=== PATIENT | female | born 1990 | race American Indian/Alaskan Native ===

== ENCOUNTER 2018-02-20 14:49 | Emergency (ER) | payer OTHER ==
[2018-02-20 14:55] VITALS: BP 131/80
== END 2018-02-20 16:53 | disposition left against medical advice (07) ==
LOC: ED 14:49
DX: M54.9 Dorsalgia, unspecified (principal); Z53.21 Procedure and treatment not carried out due to patient leaving prior to being seen by health care provider

== ENCOUNTER 2021-06-28 22:07 | Emergency (ER) | payer MEDICAID ==
[2021-06-28 22:16] VITALS: BP 144/86
--- NOTE | 2021-06-28 22:50 | Emergency Department Report ---
ED Abdominal Pain HPI - General Chief Complaint: Abdominal Pain Stated Complaint: RIGHT SIDE PAIN AND FEVER Time Seen by Provider: 06/28/21 22:30 Source: patient Mode of arrival: Ambulatory Limitations: No Limitations - History of Present Illness Initial Comments: 30-year-old female presents to ED with right flank pain. Patient states 2 weeks ago she began having some back pain, urinary frequency. Patient believes she was given a prescription for Bactrim, which she finished. Patient reports fever at home. States she is still having right-sided back pain and urinary frequency. MD Complaint: flank pain -: week(s) (2) Location: R flank Radiation: none Migration to: no migration Severity: moderate Quality: aching Consistency: intermittent Improves With: nothing Worsens With: nothing Associated Symptoms: fever. denies: nausea, vomiting, diarrhea, hematuria - Related Data Previous Rx's Medication Instructions Recorded Last Taken Type Ciprofloxacin HCl 500 mg PO BID 5 Days #10 tablet 06/29/21 Unknown Rx Naproxen [Naprosyn] 500 mg PO BID #20 tablet 06/29/21 Unknown Rx traMADoL [Ultram] 50 mg PO Q6HR PRN #7 tablet 06/29/21 Unknown Rx Allergies Allergy/AdvReac Type Severity Reaction Status Date / Time No Known Allergies Allergy Unverified 02/20/18 14:53 ED Review of Systems ROS: Stated complaint: LEFT SIDE PAIN AND FEVER Other details as noted in HPI Comment: All other systems reviewed and negative Constitutional: fever Gastrointestinal: abdominal pain. denies: nausea, vomiting Genitourinary: frequency. denies: hematuria, discharge Musculoskeletal: back pain ED Past Medical Hx - Past Medical History Previous Medical History?: No - Surgical History Past Surgical History?: Yes Additional Surgical History: C/S - Social History Smoking Status: Never Smoker Substance Use Type: None - Medications Home Medications: Home Medications Medication Instructions Recorded Confirmed Last Taken Type Ciprofloxacin HCl 500 mg PO BID 5 Days #10 tablet 06/29/21 Unknown Rx Naproxen [Naprosyn] 500 mg PO BID #20 tablet 06/29/21 Unknown Rx traMADoL [Ultram] 50 mg PO Q6HR PRN #7 tablet 06/29/21 Unknown Rx ED Physical Exam - General Limitations: No Limitations General appearance: alert, in no apparent distress - Head Head exam: Present: atraumatic, normocephalic - Eye Eye exam: Present: normal appearance, EOMI - ENT ENT exam: Present: mucous membranes moist - Neck Neck exam: Present: normal inspection - Respiratory Respiratory exam: Present: normal lung sounds bilaterally. Absent: respiratory distress - Cardiovascular Cardiovascular Exam: Present: regular rate, normal rhythm - GI/Abdominal GI/Abdominal exam: Present: soft, tenderness (RLQ, RUQ). Absent: distended - Extremities Exam Extremities exam: Present: normal inspection - Back Exam Back exam: Present: CVA tenderness (R) - Neurological Exam Neurological exam: Present: alert, oriented X3 - Psychiatric Psychiatric exam: Present: normal affect, normal mood - Skin Skin exam: Present: warm, dry, intact, normal color ED Course Vital Signs 06/28/21 06/29/21 22:11 01:30 Temperature 98.6 F Pulse Rate 82 77 Respiratory 16 16 Rate Blood Pressure 144/86 O2 Sat by Pulse 100 100 Oximetry ED Medical Decision Making - Lab Data Result diagrams: 06/28/21 22:55 06/28/21 22:55 - Radiology Data Radiology results: report reviewed, image reviewed - Medical Decision Making CT shows possible hydrosalpinx in the left adnexa. Patient has no left-sided abdominal tenderness. She denies any vaginal discharge. There are now stones or hydronephrosis. Labs show pyuria, with many epithelials present. Since patient remains symptomatic and had CVA tenderness present on exam we will treat as pyelonephritis. Will discharge with antibiotics. Outpatient follow-up advised, return precautions given. - Differential Diagnosis Pyelonephritis, kidney stone, appendicitis Critical care attestation.: If time is entered above; I have spent that time in minutes in the direct care of this critically ill patient, excluding procedure time. ED Disposition Clinical Impression: Pyelonephritis Disposition: HOME / SELF CARE / HOMELESS Is pt being admited?: No Condition: Stable Instructions: Pyelonephritis, Adult, [id number], Abdominal Pain (ED) Prescriptions: Ciprofloxacin HCl 500 mg PO BID 5 Days #10 tablet Naproxen [Naprosyn] 500 mg PO BID #20 tablet traMADoL [Ultram] 50 mg PO Q6HR PRN #7 tablet PRN Reason: Pain Referrals: [facility] [place] MD BRENDA [Primary Care Provider] - 3-5 Days BLAIR SMALL MD [Staff Physician] - 3-5 Days Time of Disposition: :01
[2021-06-28 22:56] LABS: Bilirubin,Urine NEG (Negative); Blood,Urine NEG (Negative); Color,Urine Yellow (Yellow); Hyaline Casts,Urine 3 /LPF; Mucus,Urine 3+ /HPF
[2021-06-28 23:39] LABS: Basophils # (Auto) 0.1 K/mm3 (0.0-0.1); Basophils % (Auto) 0.9 % (0.0-1.8); Eosinophils % (Auto) 0.2 % (0.0-4.3); Lymphocytes # (Auto) 1.4 K/mm3 (1.2-5.4); Lymphocytes % (Auto) 20.4 % (13.4-35.0); Mean Corpuscular HGB Conc 30 % (30-34); Mean Corpuscular Volume 72 fl (79-97); Monocytes # (Auto) 0.9 K/mm3 (0.0-0.8); Monocytes % (Auto) 13.2 % (0.0-7.3); Platelet Count 427 K/mm3 (140-440); Red Blood Count 4.38 M/mm3 (3.65-5.03)
[2021-06-28 23:41] LABS: Hematocrit 31.5 % (30.3-42.9); Hemoglobin 9.5 gm/dl (10.1-14.3); Red Cell Distribution Width 20.4 % (13.2-15.2)
[2021-06-28 23:48] LABS: Alanine Aminotransferase 10 units/L (7-56); Albumin 4.2 g/dL (3.9-5); Blood Urea Nitrogen 6 mg/dL (7-17); Calcium 8.8 mg/dL (8.4-10.2); Hemolysis Index 0
[2021-06-28 23:49] LABS: BUN/Creatinine Ratio 10; Bilirubin,Direct < 0.2 mg/dL (0-0.2)
[2021-06-28] MEDS ORDERED: IBUPROFEN 800 MG TAB PO ONE (23:50)
[2021-06-28] MEDS ORDERED: traMADol 50 MG TAB PO ONE (23:50)
--- NOTE | 2021-06-29 00:55 | Cat Scan Report ---
CT OF THE ABDOMEN AND PELVIS WITHOUT CONTRAST INDICATION / CLINICAL INFORMATION: Right flank pain. TECHNIQUE: All CT scans at this location are performed using CT dose reduction for ALARA by means of automated exposure control. COMPARISON: None available. FINDINGS: ABDOMEN: There is no evidence of urinary tract calculus, hydronephrosis, perinephric soft tissue stra nding or mass. The liver, spleen, gallbladder, bile ducts, pancreas, adrenal glands and bowel are nor mal. No vascular abnormality is seen. There is no evidence of adenopathy. The lung bases are clear. PELVIS: There is a 4.9 cm ovoid simple appearing ovoid cyst in the right adnexa with trace free fluid in the right adnexa/cul-de-sac. There are also mild tubular cystic changes in the left adnexa sugges tive of hydrosalpinx. The uterus is normal. A normal appendix is present and there is no evidence of diverticulitis. The distal ureters and urinary bladder are normal. I do not identify a hernia. No acu te osseous abnormality is seen. IMPRESSION: 1. Findings characteristic of hydrosalpinx in the left adnexa. 4.9 cm ovoid cyst in the right adnexa may represent a physiologic cyst or a dilated fallopian tube. Trace free fluid in the cul-de-sac/righ t adnexa. 2. No evidence of urinary tract calculus or hydronephrosis. Signer Name: Praveen Langley MD Signed: 06/29/2021 12:51 AM Workstation Name: [id number]
== END 2021-06-29 01:30 | disposition home or self-care (01) ==
LOC: ED 22:07
DX: N12 Tubulo-interstitial nephritis, not specified as acute or chronic (principal)
CPT/HCPCS: 36415; 74176; 80048; 80076; 81001; 84703; 85025; 87076; 87086; 87186; 99284